=== PATIENT | female | born 1955 | race Two or more races ===

== ENCOUNTER → 2016-07-03 | Day surgery (SDC) | payer OTHER ==
[~2016-07-03] MED LIST: ACETAMINOPHEN 1000 MG/100 ML VIAL IV ONE; BUPIVACAINE/EPINEPHRINE 0.25% PF 10 ML VIAL ONE; KETOROLAC TROMETHAMINE 30 MG/ML (IVP) VIAL IV PUSH ONE; LACTATED RINGER'S 1000 ML INJ 1,000 ML ONE; LIDOCAINE 1%/EPINEPHrine 1:100,000 SOLN 20 ML VIAL ONE; MIDAZOLAM HCL 2 MG/2 ML VIAL ONE; ONDANSETRON HCL 4 MG/2 ML VIAL IV PUSH ONE; PROPOFOL 200 MG/20 ML AMP IV ONE
--- NOTE | 2016-07-03 09:20 | TN ---
cc: SHANNAN KELLY MD DATE OF SURGERY 07/03/2016 PREOPERATIVE DIAGNOSIS Right shoulder lipoma 12 x 12 cm POSTOPERATIVE DIAGNOSIS Right shoulder lipoma 12 x 12 cm PROCEDURE Excision of lipoma right shoulder 12 x 12 cm SPECIMEN Right shoulder lipoma ANESTHESIA General anesthesia via LMA. ESTIMATED BLOOD LOSS 5 cc COMPLICATIONS None PROCEDURE The patient was taken to the operating room, placed in a supine position. General anesthesia via LMA was induced. The right shoulder was prepped and draped in the usual sterile fashion. A surgical time-out was performed to verify correct patient, procedure and site. The patient had a large lipoma of the right and anterior shoulder approximately 12 x 12 cm. Due to the size, I did take an ellipse of skin with the lipoma. I infiltrated local anesthetic longitudinally along the shoulder and made a longitudinal elliptical incision. The subcutaneous tissue was somewhat thinned out and it was immediately apparent a large lipoma. It was well delineated and careful blunt and electrocautery dissection freed the lipoma. I used electrocautery to take it off the underlying muscles and it was then removed. Hemostasis was achieved in the operative field with electrocautery. There was fairly large empty space and therefore I elected to place a 10-Kiswahili round, fluted, closed suction JESSICA drain through a separate stab incision inferior to the primary incision. The drain was sutured in place with 3-0 nylon. The incision was closed with a deep dermal 2-0 Vicryl, as well as subcuticular 4-0 Monocryl and Dermabond. The patient tolerated the procedure well and was extubated and taken to PACU in stable condition. MD ROBERTA Phan/MIC /9:06 AM /9:15 AM
== END | disposition home or self-care (01) ==
LOC: ESDC 06:31 → EDBD 08:00
PROVIDERS: ATTEND Surgery
DX: D17.21 Benign lipomatous neoplasm of skin and subcutaneous tissue of right arm (principal)
CPT/HCPCS: 00400; 23071; 88304; J0131; J1885; J2250; J2405; J3010; J7120